=== PATIENT | male | born 1975 | race Two or more races ===

== ENCOUNTER 2018-08-13 18:43 | Emergency (ER) | payer MEDICAID ==
[~2018-08-13] VITALS: Ht 165.1 cm; Wt 84.6 kg
[2018-08-13 18:57] VITALS: BP 144/59
[2018-08-13] MEDS ORDERED: TRIAMCINOLONE 40MG/ML 1ML VIAL IM ONE (20:00)
[2018-08-13] MEDS ORDERED: LIDOCAINE 1% HCL (LOCAL ANESTH.) INJ 20ML MDV IJ ONE (20:00)
== END 2018-08-13 20:42 | disposition home or self-care (01) ==
LOC: ER 18:43 → EDSEX 18:43 → ER 20:42
DX: G24.3 Spasmodic torticollis (principal)
CPT/HCPCS: 20552; 70450; 72040; 99284; J2001; J3301

== ENCOUNTER 2019-12-10 23:50 | Emergency (ER) | payer MEDICAID ==
[~2019-12-10] VITALS: Ht 167.6 cm; Wt 81.6 kg
[2019-12-11 06:31] VITALS: BP 160/99
[2019-12-11] MEDS ORDERED: cefTRIAXone SOD 1,000 MG VL IM ONE (06:45)
== END 2019-12-11 06:56 | disposition home or self-care (01) ==
LOC: ER 23:53
DX: J02.9 Acute pharyngitis, unspecified (principal)
CPT/HCPCS: 96372; 99283; J0696

== ENCOUNTER 2021-02-08 12:46 | Emergency (ER) | payer MEDICAID ==
[~2021-02-08] VITALS: Ht 167.6 cm; Wt 81.6 kg
[2021-02-08 13:36] VITALS: BP 153/96
== END 2021-02-08 14:03 | disposition home or self-care (01) ==
LOC: ER 12:46
DX: S92.425A Nondisplaced fracture of distal phalanx of left great toe, initial encounter for closed fracture (principal); X50.9XXA Other and unspecified overexertion or strenuous movements or postures, initial encounter; Y93.89 Activity, other specified; Y92.89 Other specified places as the place of occurrence of the external cause; Y99.8 Other external cause status
CPT/HCPCS: 73630

== ENCOUNTER 2021-09-27 16:02 | Emergency (ER) | payer MEDICAID ==
[~2021-09-27] VITALS: Ht 157.5 cm; Wt 81.6 kg
[2021-09-27 18:24] VITALS: BP 159/99
== END 2021-09-27 18:28 | disposition home or self-care (01) ==
LOC: ER 16:02
DX: S01.81XA Laceration without foreign body of other part of head, initial encounter (principal); W20.8XXA Other cause of strike by thrown, projected or falling object, initial encounter; Y93.89 Activity, other specified; Y92.89 Other specified places as the place of occurrence of the external cause; Y99.8 Other external cause status
CPT/HCPCS: 12013

== ENCOUNTER 2021-10-11 11:22 | Emergency (ER) | payer MEDICAID ==
[~2021-10-11] VITALS: Ht 167.6 cm; Wt 81.6 kg
[2021-10-11 11:42] VITALS: BP 153/93
== END 2021-10-11 13:49 | disposition home or self-care (01) ==
LOC: ER 11:22
DX: S01.81XD Laceration without foreign body of other part of head, subsequent encounter (principal); X58.XXXD Exposure to other specified factors, subsequent encounter

== ENCOUNTER 2022-12-21 07:31 | Emergency (ER) | payer MEDICAID ==
[~2022-12-21] VITALS: Ht 167.6 cm; Wt 95.0 kg
[2022-12-21 08:40] VITALS: BP 142/86
[2022-12-21] MEDS ORDERED: IBUP800T27 PO (09:39)
== END 2022-12-21 09:49 | disposition home or self-care (01) ==
LOC: ER 07:31
DX: G44.209 Tension-type headache, unspecified, not intractable (principal); H11.31 Conjunctival hemorrhage, right eye; I10 Essential (primary) hypertension; Z79.1 Long term (current) use of non-steroidal anti-inflammatories (NSAID)
CPT/HCPCS: 70450

== ENCOUNTER 2023-03-15 09:17 | Emergency (ER) | payer MEDICAID ==
[~2023-03-15] VITALS: Ht 167.6 cm; Wt 87.3 kg
[~2023-03-15 09:17] MED LIST: IBUP-1456 PO
[2023-03-15 09:31] VITALS: BP 138/94
[2023-03-15 09:54] LABS: Basophils # (auto) 0 10 ^3/uL (0-0.2); Eosinophils # (auto) 0.1 10 ^3/uL (0-0.8); Eosinophils % (auto) 2.3 % (0.0-7.0); Hematocrit 45.7 % (41.0-53.0); Hemoglobin 15.5 g/dL (13.5-17.5); Lymphocytes # (auto) 2.2 10 ^3/uL (0.4-5.4); Lymphocytes % (auto) 47.8 % (10.0-50.0); Mean Corpuscular Hemoglobin 30.8 pg (28.0-32.0); Mean Corpuscular Hgb Conc. 33.9 g/dL (32.0-36.0); Mean Corpuscular Volume 90.9 fL (80.0-100.0); Monocytes # (auto) 0.4 10 ^3/uL (0-1.3); Monocytes % (auto) 8.8 % (0.0-12.0); Neutrophils # (auto) 1.9 10 ^3/uL (1.6-8.6); Neutrophils % (auto) 40.1 % (37.0-80.0); Nucleated Red Blood Cells % 0.3 %; Red Blood Cells 5.02 10^6/uL (4.5-5.90); Red Cell Distribution Width 13.9 % (11.8-14.3); White Blood Cell 4.7 10^3/uL (4.4-10.8)
[2023-03-15 09:57] LABS: Urine Bacteria NONE SEEN /hpf (None Seen); Urine Blood Negative /uL (Negative); Urine Specific Gravity 1.024 (1.001-1.035); Urine WBC 1 /hpf (0 - 3)
[2023-03-15 11:20] LABS: Albumin 3.6 g/dL (3.4-5.0); Calcium 9.4 mg/dL (8.5-10.1)
[2023-03-15 11:29] LABS: BUN/Creatinine Ratio 11.9 (10.0-20.0); Bilirubin, Total 0.4 mg/dL (0.2-1.0); Total Protein 7.6 g/dL (6.4-8.2)
[2023-03-15] MEDS ORDERED: METH-1182 PO (11:52)
[2023-03-15] MEDS ORDERED: IBUP-1454 PO (11:52)
== END 2023-03-15 11:59 | disposition home or self-care (01) ==
LOC: ER 09:17
DX: S39.012A Strain of muscle, fascia and tendon of lower back, initial encounter (principal); I10 Essential (primary) hypertension; Z88.6 Allergy status to analgesic agent; X58.XXXA Exposure to other specified factors, initial encounter; Y93.89 Activity, other specified; Y92.89 Other specified places as the place of occurrence of the external cause; Y99.8 Other external cause status
CPT/HCPCS: 36415; 74176; 80053; 81001; 83690; 85025

== ENCOUNTER 2024-04-07 12:21 | Emergency (ER) | payer MEDICAID ==
[~2024-04-07] VITALS: Ht 167.6 cm; Wt 88.5 kg
[~2024-04-07 12:21] MED LIST changes: +IBUP-1454 PO; +METH-1182 PO
[2024-04-07 13:07] LABS: Urine Bacteria None Seen /hpf (None Seen)
[2024-04-07 13:27] LABS: Urine Blood Negative /uL (Negative); Urine Clarity Clear (Clear); Urine Color Yellow (Yellow); Urine Mucus FEW (None Seen); Urine Protein, UAD TRACE (Negative); Urine Specific Gravity 1.029 (1.001-1.035); Urine Urobilinogen 2 mg/dL (Negative); Urine WBC 1 /hpf (0 - 3); Urine pH 5.5 (5.0-9.0)
[2024-04-07] MEDS: KETOROLAC TROMETH 30 MG/ML 1ML VIAL IM ONE (15:30)
[2024-04-07 15:31] VITALS: BP 144/90; PULSE 63; RESP 18; TEMP 98; O2SAT 98
[2024-04-07] MEDS ORDERED: IBUP-1455 PO (15:39)
[2024-04-07] MEDS ORDERED: LIDO5DIS21 TOP (15:39)
[2024-04-07] MEDS ORDERED: CYCL-837 PO (15:39)
== END 2024-04-07 15:51 | disposition home or self-care (01) ==
LOC: ER 12:21
DX: S33.5XXA Sprain of ligaments of lumbar spine, initial encounter (principal); I10 Essential (primary) hypertension; Z79.899 Other long term (current) drug therapy; X58.XXXA Exposure to other specified factors, initial encounter; Y93.89 Activity, other specified; Y92.89 Other specified places as the place of occurrence of the external cause; Y99.8 Other external cause status
CPT/HCPCS: 81001; 96372; 99283; J1885

== ENCOUNTER 2024-04-21 14:32 | Emergency (ER) | payer MEDICAID ==
[~2024-04-21] VITALS: Ht 167.6 cm; Wt 89.4 kg
[~2024-04-21 14:32] MED LIST changes: +CYCL-837 PO; +IBUP-1455 PO; +LIDO5DIS21 TOP
[2024-04-21 15:49] LABS: Urine Bacteria None Seen /hpf (None Seen)
[2024-04-21 16:15] LABS: Urine Blood Negative /uL (Negative); Urine Clarity Clear (Clear); Urine Color Light-Yellow (Yellow); Urine Mucus FEW (None Seen); Urine Protein, UAD Negative (Negative); Urine Specific Gravity 1.026 (1.001-1.035); Urine Urobilinogen Normal (Negative); Urine WBC 1 /hpf (0 - 3); Urine pH 5.5 (5.0-9.0)
[2024-04-21] MEDS ORDERED: OMEP-335 PO (17:04)
[2024-04-21 17:15] VITALS: BP 124/83; PULSE 62; RESP 20; TEMP 98.2; O2SAT 97
[2024-04-21] MEDS: KETOROLAC TROMETH 30 MG/ML 1ML VIAL IM ONE (17:18)
== END 2024-04-21 17:19 | disposition home or self-care (01) ==
LOC: ER 14:32
DX: K21.9 Gastro-esophageal reflux disease without esophagitis (principal); R05.9 Cough, unspecified; I10 Essential (primary) hypertension; Z79.899 Other long term (current) drug therapy
CPT/HCPCS: 71046; 81001; 96372; 99284; J1885

== ENCOUNTER 2024-05-26 11:11 | Emergency (ER) | payer MEDICAID ==
[~2024-05-26] VITALS: Ht 160 cm; Wt 80.0 kg
[~2024-05-26 11:11] MED LIST changes: +OMEP-335 PO
[2024-05-26 12:31] VITALS: BP 135/85; PULSE 64; RESP 18; TEMP 97.8; O2SAT 97
[2024-05-26] MEDS ORDERED: PRED20TA2 PO (13:25)
[2024-05-26] MEDS ORDERED: IBUP-1454 PO (13:25)
== END 2024-05-26 13:57 | disposition home or self-care (01) ==
LOC: ER 11:11
DX: M54.50 Low back pain, unspecified (principal); R51.9 Headache, unspecified; I10 Essential (primary) hypertension; Z79.899 Other long term (current) drug therapy
CPT/HCPCS: 70450; 72100

== ENCOUNTER 2025-08-29 15:40 | Emergency (ER) | payer MEDICAID ==
[~2025-08-29] VITALS: Ht 167.6 cm; Wt 86.6 kg
[~2025-08-29 15:40] MED LIST changes: +PRED20TA2 PO
[2025-08-29 16:35] LABS: Hematocrit 45.3 % (41.0-53.0); Hemoglobin 15.5 g/dL (13.5-17.5); Mean Corpuscular Hemoglobin 30.7 pg (28.0-32.0); Mean Corpuscular Volume 89.5 fL (80.0-100.0); Nucleated Red Blood Cells % 0.3 %
--- NOTE | 2025-08-29 16:40 | ED.PDOC ---
GI ASSESSMENT HPI Comments This is a 50 year old male presenting to the ED with chief complaint of abdominal pain. Patient reports that he has been experiencing chronic LUQ abdominal pain with associated warmth feeling and metallic taste in his mouth for the past 15 months. Patient relays that he has been seen by a GI specialist regarding this issue, having an endoscopy and MRI performed, but he was only found to have gastritis and GERD. Patient states he was prescribed Omeprazole 4 months ago, but no relief in his pain and symptoms have been noted. Patient notes that the metallic taste becomes stronger when his pain increased. Patient denies any N/V/D, dizziness, fever, chills. hematemesis, or melena. Chief Complaint: Abdominal Pain Time Seen by MD: 16:37 Primary Care Provider: NONE Reviewed Notes: Nurses Notes, Medications, Allergies Allergies: Coded Allergies: NO KNOWN ALLERGIES (Unverified , 08/13/18) Home Meds Active Scripts Prednisone (Prednisone) 20 Mg Tab, 40 MG PO DAILY for 5 Days, #10 TAB 0 Refills Prov:CATHY ELIZALDE NP 05/26/24 Ibuprofen (Ibuprofen) 600 Mg Tab, 1 TAB PO TID for 14 Days, #42 TAB 0 Refills Prov:CATHY ELIZALDE [employer] 05/26/24 Omeprazole (Omeprazole) 20 Mg Tab, 20 MG PO DAILY, #30 TAB Prov:ERIKA LUTHER PAC 04/21/24 Lidocaine (LIDODERM 5% TOPICAL PATCH) 1 Patch Ph, 1 PATCH TOP DAILY for 30 Days, #30 PATCH 0 Refills Prov:CATHY ELIZALDE [employer] 04/07/24 Cyclobenzaprine Hcl (Cyclobenzaprine Hcl) 5 Mg Tab, 1 TAB PO QHSP PRN for 30 Days, #30 TAB 0 Refills Prov:CATHY ELIZALDE [employer] 04/07/24 Ibuprofen Micronized (Ibuprofen) 800 Mg Tab, 800 MG PO TIDWMEALS for 10 Days, #30 TAB 0 Refills Prov:CATHY ELIZALDE [employer] 04/07/24 Methocarbamol (Methocarbamol) 750 Mg Tab, 750 MG PO BID, #20 TAB Prov:ZAIN WILDER 03/15/23 Ibuprofen (Ibuprofen) 600 Mg Tab, 1 TAB PO TID, #30 TAB Prov:ZAIN WILDER 03/15/23 Ibuprofen (Ibuprofen) 800 Mg Tab, 1 TAB PO TID, #24 TAB Prov:MICHAEL WILDERBUD LAM 12/21/22 Information Source: Patient Mode of Arrival: Ambulatory Timing: Months Duration: Since onset Prehospital treatment: None Quality: Aching Vomitus: None Stool: Normal Severity: Moderate Recent: None Recent Hx of: None Pain Location: LUQ Modifying Factors: Nothing Associated sign and symptoms: Abdominal Pain Past Medical History PAST MEDICAL HISTORY: GERD, HTN Surgical History: Denies all surgeries Family History Family History: Reviewed,noncontributory to illness Social History Smoker: Non-Smoker Alcohol: Denies ETOH Use Drugs: Denies Drug Use Lives In: Home Constitutional: denies: chills, diaphoresis, fatigue, fever, malaise, sweats, weakness, others EENTM: reports: others (Metallic taste in mouth); denies: blurred vision, double vision, ear bleeding, ear discharge, ear drainage, ear pain, ear ringing, eye pain, eye redness, hearing loss, mouth pain, mouth swelling, nasal discharge, nose bleeding, nose congestion, nose pain, photophobia, tearing, throat pain, throat swelling, voice changes Respiratory: denies: cough, hemoptysis, orthopnea, SOB at rest, shortness of breath, SOB with excertion, stridor, wheezing, others Cardiovascular: denies: chest pain, dizzy spells, diaphoresis, Dyspnea on exertion, edema, irregular heart beat, left arm pain, lightheadedness, palpitations, PND, syncope, others Gastrointestinal: reports: abdominal pain; denies: abdomen distended, blood streaked bowels, constipated, diarrhea, dysphagia, difficulty swallowing, hematemesis, melena, nausea, poor appetite, poor fluid intake, rectal bleeding, rectal pain, vomiting, others Genitourinary: denies: burning, dysuria, flank pain, frequency, hematuria, incontinence, penile discharge, penile sore, pain, testicle pain, testicle swelling, urgency, others Neurological: denies: dizziness, fainting, headache, left sided numbness, left sided weakness, numbness, paresthesia, pre-existing deficit, right sided numbness, right sided weakness, seizure, speech problems, tingling, tremors, weakness, others Musculoskeletal: denies: back pain, gout, joint pain, joint swelling, muscle pain, muscle stiffness, neck pain, others Integumetry: denies: bruises, change in color, change in hair/nails, dryness, laceration, lesions, lumps, rash, wounds, others Allergic/Immunocompromised: denies: Difficulty Healing, Frequent Infections, Hives, Itching, others Hematologic/Lymphatic: denies: anemia, blood clots, easy bleeding, easy bruising, swollen glands, others Endocrine: denies: excessive hunger, excessive sweating, excessive thirst, excessive urination, flushing, intolerance to cold, intolerance to heat, unexplained weight gain, unexplained weight loss, others Psychiatric: denies: anxiety, bipolar disorder, depression, hopeless, panic disorder, schizophrenia, sleepless, suicidal, others All Other Systems: Reviewed and Negative Physical Exam General Appearance: No Apparent Distress, Normal HEENT: Normal ENT Inspection, Pharynx Normal, TMs Normal Neck: Full Range of Motion, Non-Tender, Normal, Normal Inspection Respiratory: Chest Non-Tender, Lungs Clear, No Accessory Muscle Use, No Re spiratory Distress, Normal Breath Sounds Cardiovascular: No Edema, No JVD, No Murmur, No Gallop, Normal Peripheral Pulses, Regular Rate/Rhythm Breast Exam: Deferred Gastrointestinal: No Organomegaly, Non Tender, No Pulsatile Mass, Normal Bowel Sounds, Soft Genitalia: Deferred Pelvic: Deferred Rectal: Deferred Extremities: No calf tenderness, Normal capillary refill, Normal inspection, Normal range of motion, Non-tender, No pedal edema Musculoskeletal : Apperance: Normal Neurologic: Alert, staff nurse midwife II-XII nml as Tested, No Motor Deficits, Normal Affect, Normal Mood, No Sensory Deficits Cerebellar Function: Normal Reflexes: Normal Skin: Dry, Normal Color, Warm Lymphatic: No Adenopathy Was a procedure done? Was a procedure done?: No GI differential Dx Differential Diagnosis: Gastritis/PUD, Gastroenteritis X-Ray, Labs, Meds, VS Vital Signs Date Time Temp Pulse Resp B/P (MAP) Pulse Ox O2 Delivery O2 Flow Rate FiO2 08/29/25 15:42 98.9 68 16 139/89 100 98.9 Lab Test 08/29/25 17:33 08/29/25 16:08 Range/Units Urine Color Light-yellow Yellow Urine Clarity Clear Clear Urine pH 6.0 5.0-9.0 Urine Specific Marcus 1.022 1.001-1.035 Urine Protein Negative Negative Urine Ketones Negative Negative Urine Blood Negative Negative /uL Urine Nitrite Negative Negative Urine Bilirubin Negative Negative Urine Urobilinogen Normal Negative mg/dL Urine Leukocyte Esterase Negative Negative /uL Urine RBC <1 0 - 3 /hpf Urine Microscopic WBC 1 0-3 /HPF Urine Squamous Epithelial Cells None seen <5 /hpf Urine Bacteria None seen None Seen /hpf Urine Glucose Normal Normal mg/dL White Blood Count 5.8 4.4-10.8 10^3/uL Red Blood Count 5.06 4.5-5.90 10^6/uL Hemoglobin 15.5 13.5-17.5 g/dL Hematocrit 45.3 41.0-53.0 % Mean Corpuscular Volume 89.5 80.0-100.0 fL Mean Corpuscular Hemoglobin 30.7 28.0-32.0 pg Mean Corpuscular Hemoglobin Concent 34.3 32.0-36.0 g/dL Red Cell Distribution Width 14.6 H 11.8-14.3 % Platelet Count 218 140-450 10^3/uL Mean Platelet Volume 8.7 6.9-10.8 fL Neutrophils (%) (Auto) 54.3 37.0-80.0 % Lymphocytes (%) (Auto) 33.4 10.0-50.0 % Monocytes (%) (Auto) 9.8 0.0-12.0 % Eosinophils (%) (Auto) 1.8 0.0-7.0 % Basophils (%) (Auto) 0.7 0.0-2.0 % Neutrophils # (Auto) 3.1 1.6-8.6 10 ^3/uL Lymphocytes # (Auto) 1.9 0.4-5.4 10 ^3/uL Monocytes # (Auto) 0.6 0-1.3 10 ^3/uL Eosinophils # (Auto) 0.1 0-0.8 10 ^3/uL Basophils # (Auto) 0 0-0.2 10 ^3/uL Nucleated Red Blood Cells 0.3 % Sodium Level 143 136-145 mmol/L Potassium Level 3.8 3.5-5.1 mmol/L Chloride Level 106 98-107 mmol/L Carbon Dioxide Level 26 20-31 mmol/L Anion Gap 11 5-15 Blood Urea Nitrogen 10 9-23 mg/dL Creatinine 1.09 0.700-1.30 mg/dL Glomerular Filtration Rate Calc 82 >90 mL/min BUN/Creatinine Ratio 9.2 L 10.0-20.0 Serum Glucose 108 H 74-106 mg/dL Calcium Level 9.6 8.7-10.4 mg/dL Lipase 41 12-53 U/L Time of 1ST Reevaluation: 17:37 Reevaluation 1ST: Unchanged Patient Education/Counseling: Diagnosis, Treatment Family Education/Counseling: No Family Present SEPSIS Sepsis Screen Date sepsis recognized/suspect: Aug 29, 2025 Time Sepsis recognized/suspect: 1544 Recent Procedure: No On Antibiotic Therapy: No Respiratory Rate >20: No Heart Rate >90: No Temp<36 C (96.8 F) or >38.3 C: No SBP <90 or MAP <65 mmHG: No New Acute Mental Status Change: No Is the patient on CPAP, BIPAP,: No Vital Signs Date Time Temp Pulse Resp B/P (MAP) Pulse Ox O2 Delivery O2 Flow Rate FiO2 08/29/25 15:42 98.9 68 16 139/89 100 98.9 Laboratory Tests Test 08/29/25 16:08 White Blood Count 5.8 10^3/uL (4.4-10.8) Departure 1 Departure Time of Disposition: 20:06 (50-year-old male presenting for evaluation of recurrent left upper quadrant pain and metallic no ongoing for over 1 year. Patient already had an endoscopy and was seen by a GI doctor telling him that his symptoms were likely related to his gastritis and reflux. Currently taking a PPI which he reports does not help his symptoms. Left upper quadrant discomfort consider possible pancreatitis, lipase today is within normal limits. Given the duration of symptoms and because the patient has already had an MR of the abdomen that was unremarkable does not require any advanced imaging today as I do not suspect mass or other acute intra-abdominal process causing his symptoms. CBC a with no evidence of critical leukocytosis or significant anemia. Metabolic panel with no evidence of acute kidney insufficiency or acute electrolyte abnormalities. Patient was treated here for discomfort with oral Tylenol, Pepcid, Maalox, viscous lidocaine. Reported improvement after interventions. Recommended to continue to follow up with outpatient primary care doctor and GI doctor for further management of his acute on chronic abdominal discomfort.) Impression: Primary Impression: Left upper quadrant abdominal pain Additional Impressions: Gastritis GERD (gastroesophageal reflux disease) Disposition: 01 HOME / SELF CARE / HOMELESS Condition: Stable Additional Instructions: You were evaluated today for recurrent metallic taste in your mouth and left- sided abdominal pain. Your symptoms are likely related to your known gastritis, reflux. Please continue to take your omeprazole as prescribed. Follow up with your manager of software for further management of your gastritis and reflux. Discharged With: Self Critical Care Note Critical Care Time?: No Stability Stability form required: No Heart Score Heart Score: Heart Score Response (Comments) Value History N/A 0 EKG N/A 0 Age N/A 0 Risk Factors N/A 0 Troponin N/A 0 Total 0 I personally scribed for RUPERT HOLLINS MD ([email or web address]) on 08/29/25 at 16:40. Electronically submitted by Jerardo Sampson ([email or web address]). RUPERT HOLLINS MD Aug 29, 2025 16:40
[2025-08-29 16:44] LABS: Chloride 106 mmol/L (98-107); Potassium 3.8 mmol/L (3.5-5.1); Sodium 143 mmol/L (136-145)
[2025-08-29 16:45] LABS: Anion Gap 11 (5-15); Calcium 9.6 mg/dL (8.7-10.4); Carbon Dioxide 26 mmol/L (20-31)
[2025-08-29 16:50] LABS: BUN/Creatinine Ratio 9.2 (10.0-20.0); Blood Urea Nitrogen 10 mg/dL (9-23); Lipase 41 U/L (12-53)
[2025-08-29 16:57] LABS: Glucose 108 mg/dL (74-106)
[2025-08-29 17:44] LABS: Urine Protein, UAD Negative (Negative)
[2025-08-29] MEDS: LIDOCAINE VISCOUS 2% 15ML UD PO ONE (20:52)
[2025-08-29] MEDS: MAALOX PLUS or MAALOX 30 ML PO ONE (20:52)
[2025-08-29] MEDS: FAMOTIDINE 20 MG TAB PO ONE (20:53)
[2025-08-29] MEDS: ACETAMINOPHEN 500 MG TAB or CAP PO ONE (20:53)
[2025-08-29 20:58] VITALS: BP 150/86; PULSE 65; RESP 15; TEMP 97.6; O2SAT 100
== END 2025-08-29 21:31 | disposition home or self-care (01) ==
LOC: ER 15:40
DX: K29.70 Gastritis, unspecified, without bleeding (principal); K21.9 Gastro-esophageal reflux disease without esophagitis; R10.12 Left upper quadrant pain; I10 Essential (primary) hypertension; Z79.899 Other long term (current) drug therapy
CPT/HCPCS: 36415; 80048; 81001; 83690; 85025